=== PATIENT | female | born 1945 | race Caucasian/White ===

== ENCOUNTER 2017-12-11 08:07 | Day surgery (SDC) | payer MEDICARE, OTHER ==
[2016-04-27 12:35] VITALS: BMI 39.4
[2017-12-11] MEDS ORDERED: Lactated Ringer's 1,000 ML IV ONE (09:25)
[2017-12-11] MEDS ORDERED: Lidocaine 2% MPF (5 ml) Inj ONE (10:37)
[2017-12-11] MEDS ORDERED: Propofol 10 mg/ml Inj (20 ML) ONE (10:37)
[2017-12-11 11:38] VITALS: PULSE 70; O2SAT 97
[2017-12-11 11:40] VITALS: BP 98/47; RESP 13; TEMP 99.2
== END 2017-12-11 12:54 | disposition home or self-care (01) ==
LOC: H.ENDO 08:07
PROVIDERS: ATTEND Internal Medicine Gastroenterology
DX: Z12.11 Encounter for screening for malignant neoplasm of colon (principal); E11.9 Type 2 diabetes mellitus without complications; I10 Essential (primary) hypertension; K64.8 Other hemorrhoids; K57.30 Diverticulosis of large intestine without perforation or abscess without bleeding
CPT/HCPCS: 45378; 82948; J2704; J7120